=== PATIENT | female | born 1995 | race Caucasian/White ===

== ENCOUNTER 2020-06-16 13:08 | Emergency (ER) | payer OTHER ==
[~2020-06-16 13:08] MED LIST: ANUCORT-HC25 MG PR; BACTRIM DS TAB1 EACH PO; BENTYL10 MG PO; BUSPIRONE HCL15 MG PO; CARAFATE S500 MG/TSP PO; COLACE100 MG PO; KEFLEX250 MG PO; NORCO 5-325 TA1 EACH PO; PERCOCET 5-3251 EACH PO; VIBRAMYCIN100 MG PO; ZOFRAN4 MG PO
[2020-06-16 16:00] LABS: BASOPHIL 0.4 % (0-2); EOSINOPHIL 0.4 % (0-5); HCT 40.5 % (37.0-47.0); HGB 13.2 g/dl (12.5-16.0); LYMPHOCYTE 17.2 % (15-48); MCHC 32.6 g/dL (32.0-36.0); MONOCYTE 5.5 % (0-12); MPV 10.3 fL (6.0-9.5); NEUTROPHIL 75.4 % (41-80); NRBC 0; PLT 296 K/uL (150-400); RBC 4.71 M/uL (4.20-5.40); WBC 9.9 K/uL (4.0-10.5)
[2020-06-16 16:00] LABS: BILIRUBIN 1+ mg/dL (NEGATIVE); BLOOD 3+ Ery/uL (NEGATIVE); GLUCOSE (U) NORMAL (NORMAL); LEUKOCYTES NEGATIVE Leu/uL (NEGATIVE); NITRITE NEGATIVE (NEGATIVE); PROTEIN 1+ mg/dL (NEGATIVE); SPECIFIC GRAVITY >=1.030 (1.001-1.030); pH 5.5 (5.0-9.0)
[2020-06-16 16:03] LABS: CLARITY SLIGHTLY HAZY (CLEAR); COLOR AMBER (YELLOW)
[2020-06-16 16:06] LABS: SQUAMOUS EPITHELIAL CELLS RARE; URINARY RBC TNTC; URINARY WBC RARE
[2020-06-16 16:07] LABS: AMPHETAMINES NEGATIVE (NEGATIVE); BARBITURATES NEGATIVE (NEGATIVE); ECSTASY (MDMA) NEGATIVE (NEGATIVE); MARIJUANA (THC) NEGATIVE (NEGATIVE); METHADONE NEGATIVE (NEGATIVE); OPIATES NEGATIVE (NEGATIVE)
[2020-06-16 16:08] LABS: OXYCODONE NEGATIVE (NEGATIVE)
[2020-06-16 16:19] LABS: ALBUMIN 3.3 g/dL (3.4-5.0); BILIRUBIN - TOTAL 0.8 mg/dL (0.2-1.0); BUN/CREAT RATIO (CALC) 21.6 RATIO; CREATININE 0.51 mg/dL (0.51-0.95); GLOBULIN (CALCULATION) 3.6 g/dL; POTASSIUM 3.8 mmol/L (3.5-5.1); TOTAL PROTEIN 6.9 g/dL (6.4-8.2)
[2020-06-16] MEDS ORDERED: ZOFRAN4 M1 PO (18:49)
== END 2020-06-16 19:26 | disposition home or self-care (01) ==
LOC: FER 13:08
PROVIDERS: Nurse Practitioner Family
DX: R10.2 Pelvic and perineal pain (principal); R11.2 Nausea with vomiting, unspecified; R19.7 Diarrhea, unspecified; R55 Syncope and collapse; F17.210 Nicotine dependence, cigarettes, uncomplicated; Z90.49 Acquired absence of other specified parts of digestive tract
CPT/HCPCS: 36415; 76830; 80053; 80305; 81001; 85025; 93005; J1885; J2405; J7030; Q9967

== ENCOUNTER 2020-10-12 08:07 | Emergency (ER) | payer OTHER ==
[~2020-10-12 08:07] MED LIST changes: +ZOFRAN4 M1 PO
[2020-10-12] MEDS ORDERED: NORCO 5-325 TA1 EACH PO (10:15)
[2020-10-12] MEDS ORDERED: ONDANSETRON ODT4 MG PO (10:15)
[2020-10-12] MEDS ORDERED: CEPHALEXIN500 M1 PO (10:15)
== END 2020-10-12 10:17 | disposition home or self-care (01) ==
LOC: FER 08:07
DX: S91.112A Laceration without foreign body of left great toe without damage to nail, initial encounter (principal); R11.0 Nausea; F17.210 Nicotine dependence, cigarettes, uncomplicated; W22.09XA Striking against other stationary object, initial encounter; Y92.009 Unspecified place in unspecified non-institutional (private) residence as the place of occurrence of the external cause

== ENCOUNTER 2021-09-18 13:52 | Emergency (ER) | payer OTHER ==
[~2021-09-18 13:52] MED LIST changes: +CEPHALEXIN500 M1 PO; +ONDANSETRON ODT4 MG PO
[2021-09-18 16:36] LABS: BASOPHIL 0.7 % (0-2); EOSINOPHIL 2.1 % (0-5); HCT 42.3 % (37.0-47.0); HGB 14.1 g/dl (12.5-16.0); LYMPHOCYTE 27.2 % (15-48); MCH 28.7 pg (25.0-31.0); MCHC 33.3 g/dL (32.0-36.0); MCV 86.2 fL (78.0-100.0); MONOCYTE 9.8 % (0-12); MPV 10.7 fL (6.0-9.5); NRBC 0; PLT 293 K/uL (150-400); RBC 4.91 M/uL (4.20-5.40); RDW 13.2 % (11.5-14.0); WBC 6.1 K/uL (4.0-10.5)
[2021-09-18 16:53] LABS: ALBUMIN 3.5 g/dL (3.4-5.0); BILIRUBIN - TOTAL 0.5 mg/dL (0.2-1.0); BUN/CREAT RATIO (CALC) 20.8 RATIO; CREATININE 0.53 mg/dL (0.51-0.95); TOTAL PROTEIN 7.5 g/dL (6.4-8.2)
[2021-09-18 17:03] LABS: BILIRUBIN NEGATIVE (NEGATIVE); BLOOD NEGATIVE Ery/uL (NEGATIVE); CLARITY CLEAR (CLEAR); COLOR YELLOW (YELLOW); GLUCOSE (U) NORMAL (NORMAL); LEUKOCYTES NEGATIVE Leu/uL (NEGATIVE); NITRITE NEGATIVE (NEGATIVE); PROTEIN NEGATIVE (NEGATIVE); pH 7.5 (5.0-9.0)
[2021-09-18 17:07] LABS: AMPHETAMINES NEGATIVE (NEGATIVE); BARBITURATES NEGATIVE (NEGATIVE); ECSTASY (MDMA) NEGATIVE (NEGATIVE); MARIJUANA (THC) NEGATIVE (NEGATIVE); METHADONE NEGATIVE (NEGATIVE); OPIATES NEGATIVE (NEGATIVE); OXYCODONE NEGATIVE (NEGATIVE)
[2021-09-18 17:08] LABS: HCG (URINE) SCREEN NEGATIVE (NEGATIVE)
[2021-09-18] MEDS ORDERED: BENTYL10 MG PO (17:40)
== END 2021-09-18 18:10 | disposition home or self-care (01) ==
LOC: FER 13:52
PROVIDERS: Physician Assistant
DX: K52.9 Noninfective gastroenteritis and colitis, unspecified (principal); F17.210 Nicotine dependence, cigarettes, uncomplicated; Z28.310 Unvaccinated for COVID-19
CPT/HCPCS: 36415; 80053; 80305; 81003; 83690; 84703; 85025; J2405; J7030

== ENCOUNTER 2022-01-08 15:10 | Emergency (ER) | payer OTHER ==
[2022-01-08 17:08] LABS: BASOPHIL 0.8 % (0-2); EOSINOPHIL 2.5 % (0-5); HCT 41.6 % (37.0-47.0); HGB 13.8 g/dl (12.5-16.0); LYMPHOCYTE 33.2 % (15-48); MCHC 33.2 g/dL (32.0-36.0); MCV 84.6 fL (78.0-100.0); MONOCYTE 8.5 % (0-12); MPV 10.7 fL (6.0-9.5); NEUTROPHIL 54.8 % (41-80); NRBC 0; PLT 324 K/uL (150-400); RBC 4.92 M/uL (4.20-5.40); RDW 13.2 % (11.5-14.0); WBC 6.4 K/uL (4.0-10.5)
[2022-01-08 17:18] LABS: BILIRUBIN 1+ mg/dL (NEGATIVE); BLOOD TRACE-INTACT Ery/uL (NEGATIVE); CLARITY CLEAR (CLEAR); COLOR YELLOW (YELLOW); GLUCOSE (U) NORMAL (NORMAL); LEUKOCYTES TRACE Leu/uL (NEGATIVE); NITRITE POSITIVE (NEGATIVE); PROTEIN 1+ mg/dL (NEGATIVE); SPECIFIC GRAVITY >=1.030 (1.001-1.030)
[2022-01-08 17:19] LABS: ALBUMIN 3.7 g/dL (3.4-5.0); BILIRUBIN - TOTAL 0.6 mg/dL (0.2-1.0); BUN/CREAT RATIO (CALC) 12.5 RATIO; CREATININE 0.56 mg/dL (0.51-0.95); GLOBULIN (CALCULATION) 3.7 g/dL; POTASSIUM 3.8 mmol/L (3.5-5.1); TOTAL PROTEIN 7.4 g/dL (6.4-8.2)
[2022-01-08 17:39] LABS: AMORPHOUS URATES CRYSTALS MODERATE; BACTERIA 3+; CALCIUM OXALATE CRYSTALS LARGE; MUCOUS TRACE
[2022-01-08 17:49] LABS: CORONAVIRUS 2019 SARS-COV-2 NEGATIVE (NEGATIVE); INFLUENZA A NAA NEGATIVE (NEGATIVE)
[2022-01-08] MEDS ORDERED: ONDANSETRON ODT4 MG PO (20:14)
[2022-01-08] MEDS ORDERED: CEFDINIR300 MG PO (20:14)
== END 2022-01-08 20:22 | disposition home or self-care (01) ==
LOC: FER 15:10
PROVIDERS: Physician Assistant
DX: N30.00 Acute cystitis without hematuria (principal); R05.9 Cough, unspecified; R11.0 Nausea; R19.7 Diarrhea, unspecified; M79.10 Myalgia, unspecified site; F17.210 Nicotine dependence, cigarettes, uncomplicated; Z20.822 Contact with and (suspected) exposure to COVID-19; Z28.310 Unvaccinated for COVID-19
CPT/HCPCS: 36415; 71046; 80053; 81001; 85025; 93005; J2405; J7030; U0002